=== PATIENT | male | born 1985 | race Caucasian/White ===

== ENCOUNTER 2017-02-06 16:45 | Emergency (ER) | payer MEDICAID ==
[~2017-02-06] VITALS: Ht 180.3 cm; Wt 70.3 kg
[2017-02-06 16:58] VITALS: BP 170/80
--- NOTE | 2017-02-06 17:05 | NUR ---
PATIENT AMBULATED TO ER BED 3.
--- NOTE | 2017-02-06 17:10 | NUR ---
31 M BIB PARENTS C/O DIZZINESS AND WEAKNESS SINCE THIS MORNING; PT STATES THE ROOM IS SPINNING; PT WENT TO A CLINIC THIS MORNING AND WERE ADVISED TO COME HERE IN ER DUE TO EKG RESULTS; AAOX4 WITH EVEN AND STEADY GAIT; LUNGS CLEAR BL; RR ARE EVEN AND UNLABORED; PT DENIES ANY FEVER, CP, SOB, OR COUGH AT THIS TIME; PATIENT STATES PAIN OF 0/10 AT THIS TIME; VSS; PATIENT POSITIONED FOR COMFORT; HOB ELEVATED; BEDRAILS UP X2; BED DOWN. ER MD SANTANA; WILL CONTINUE TO MONITOR
--- NOTE | 2017-02-06 17:16 | NUR ---
PATIENT BEING EVALUATED BY DR. SANTANA.
[2017-02-06 17:29] LABS: BASOPHILS # (AUTO) 0.2 K/uL (0.00-0.22); BASOPHILS % (AUTO) 1.6 % (0.0-2.0); EOSINOPHILS # (AUTO) 0.1 K/uL (0-0.4); EOSINOPHILS % (AUTO) 1.1 % (0.0-4.0); HEMATOCRIT 47.3 % (36-52); HEMOGLOBIN 15.8 g/dL (12.0-18.0); LYMPHOCYTES % (AUTO) 9.6 % (20.5-51.1); MEAN CORPUSCULAR HEMOGLOBIN 31 pg (27-31); MEAN CORPUSCULAR HGB CONC 33 g/dL (33-37); MEAN CORPUSCULAR VOLUME 92 fL (80-94); MONOCYTES # (AUTO) 0.6 K/uL (0.8-1.0); MONOCYTES % (AUTO) 5.9 % (1.7-9.3); NEUTROPHILS # (AUTO) 8.6 K/uL (1.8-7.7); NEUTROPHILS % (AUTO) 81.8 % (42.2-75.2); PLATELET COUNT (AUTO) 271 K/uL (140-450); RED BLOOD CELL COUNT(AUTO) 5.17 MIL/uL (4.20-6.10); RED CELL DISTRIBUTION WIDTH 12.6 % (11.6-13.7); WHITE BLOOD COUNT (AUTO) 10.5 K/uL (4.8-10.8)
[2017-02-06 17:45] LABS: CREATININE 0.9 mg/dL (0.7-1.3)
[2017-02-06 17:47] LABS: APPEARANCE,URINE CLEAR (CLEAR); BILIRUBIN,URINE NEGATIVE (NEGATIVE); BLOOD, URINE NEGATIVE (NEGATIVE); COLOR,URINE YELLOW (YELLOW); LEUKOCYTE ESTERASE ,URINE NEGATIVE (NEGATIVE); NITRITE, URINE NEGATIVE (NEGATIVE); PH,URINE 7.5 (5.0-9.0); UGLUCOSE NEGATIVE (NEGATIVE)
[2017-02-06 17:50] LABS: ALBUMIN 4.4 g/dL (3.4-5.0); TOTAL BILIRUBIN 0.8 mg/dL (0.0-1.0)
--- NOTE | 2017-02-06 18:06 | NUR ---
PATIENT RESTING IN GURNEY WITH PARENTS BY BEDSIDE; NAD; RR ARE EVEN AND UNLABORED; WILL CONTINUE TO MONITOR
[2017-02-06 18:08] LABS: BARBITURATE, URINE NEG. ng/ml (NEG <=200); BENZODIAZEPINE, URINE NEG. ng/mL (NEG <=200); CANNABINOID, URINE POS. ng/mL (NEG <=50); COCAINE, URINE NEG. ng/mL (NEG <=300); OPIATE, URINE NEG. ng/mL (NEG <=2000); PHENCYCLIDINE SCREEN,URINE NEG. ng/mL (NEG <=25)
[2017-02-06] MEDS ORDERED: MAG SULF 2000 MG/WATER PREMIX 50 ML IV ONE (18:45)
[2017-02-06] MEDS ORDERED: NACL 0.9% 1,000 ML IV ONE (18:55)
--- NOTE | 2017-02-06 19:00 | NUR ---
PER ER MD SANTANA, MAGNESIUM SULFATE IVBP RATE TO BE 50 CC/HR
--- NOTE | 2017-02-06 19:14 | NUR ---
Pt report given to Chichi ARGUETA. Transfer of care at this time.
--- NOTE | 2017-02-06 19:18 | NUR ---
REPORT RECEIVED FROM ELLIE STAHL
[2017-02-06 19:46] VITALS: BP 146/56
== END 2017-02-06 19:46 | disposition home or self-care (01) ==
LOC: MED 16:53
DX: E83.42 Hypomagnesemia (principal); R42 Dizziness and giddiness
CPT/HCPCS: 36415; 70450; 71010; 80053; 80305; 81003; 83735; 84484; 85025; 93005; 96361; 96365; 99285; J3475; J7030